=== PATIENT | female | born 1995 | race Caucasian/White ===

== ENCOUNTER 2016-08-26 19:30 | Emergency (ER) | payer OTHER ==
[2016-08-26 20:15] VITALS: BP 133/91
--- NOTE | 2016-08-26 20:27 | UC ---
Respiratory Complaint HPI - HPI Summary HPI Summary: 21 y/o female presents to the clinic c/o of sore throat, productive cough and Rt ear pain for the pasr 3 days. Patient reports about a month ago she had similar symptoms and went to the [facility] office in [facility] and was Rx Amoxicillin for 10 days. She states her symptoms resolved, but now they have returned. Her cough is producing a white phlegm. Positive nasal congestion with mild headache. Denies SOB, fever, chest pain, N/V/D. - History of Current Complaint Stated Complaint: COUGH SORE THROAT EAR PAIN Time Seen by Provider: 08/26/16 20:06 Hx Obtained From: Patient Hx Last Menstrual Period: 08/23/16 ?: No Onset/Duration: Gradual Onset, Lasting Days, Still Present Timing: Constant Severity Initially: Moderate Severity Currently: Moderate Pain Intensity: 4 Pain Scale Used: 0-10 Numeric Character: Cough: Productive - white phlegm Aggravating Factors: Allergens Alleviating Factors: Nothing Associated Signs And Symptoms: Positive: Dyspnea, Nasal Congestion, Sinus Discomfort. Negative: Fever, Wheezing Related History: Seasonal Allergies - Risk Factors Pulmonary Embolism Risk Factors: Negative Cardiac Risk Factors: Negative Pseudomonas Risk Factors: Negative Tuberculosis Risk Factors: Negative - Allergies/Home Medications Allergies/Adverse Reactions: Allergies Allergy/AdvReac Type Severity Reaction Status Date / Time No Known Allergies Allergy Verified 08/26/16 20:15 PMH/Surg Hx/FS Hx/Imm Hx Previously Healthy: Yes Psychological History: Anxiety - Surgical History Surgical History: None - Family History Known Family History: Positive: Hypertension, Diabetes Negative: Cardiac Disease - Social History Occupation: Student Alcohol Use: Weekly Substance Use Type: Marijuana Substance Use Comment - Amount & Last Used: occasionally Smoking Status (MU): Never Smoked Tobacco Review of Systems Constitutional: Negative Skin: Negative Eyes: Negative ENT: Sore Throat, Ear Ache, Nasal Discharge Respiratory: Cough - productive Cardiovascular: Negative Gastrointestinal: Negative Genitourinary: Negative Motor: Negative Neurovascular: Negative Musculoskeletal: Negative Neurological: Negative Psychological: Negative All Other Systems Reviewed And Are Negative: Yes Physical Exam Triage Information Reviewed: Yes Appearance: Well-Appearing, No Pain Distress, Well-Nourished, Obese Vital Signs: Initial Vital Signs Temp 98.9 F 08/26/16 20:09 Pulse 94 08/26/16 20:09 Resp 18 08/26/16 20:09 BP 133/91 08/26/16 20:09 Pulse Ox 98 08/26/16 20:09 Vital Signs Reviewed: Yes Eyes: Positive: Conjunctiva Clear - watery discharge ENT: Positive: Normal ENT inspection, Hearing grossly normal, Pharyngeal erythema, Nasal congestion, Nasal drainage - clear, TMs normal, Tonsillar swelling, Tonsillar exudate Neck exam: Normal Neck: Positive: Supple, Nontender, Tenderness @ - Left anterior cervical node, Enlarged Nodes @ Respiratory: Positive: Chest non-tender, Lungs clear, Normal breath sounds, No respiratory distress Cardiovascular Exam: Normal Cardiovascular: Positive: No Murmur, Pulses Normal Abdominal Exam: Normal Abdomen Description: Positive: Nontender, No Organomegaly, Soft Bowel Sounds: Positive: Present Musculoskeletal Exam: Normal Neurological Exam: Normal Psychological Exam: Normal Skin Exam: Normal UC Diagnostic Evaluation - Laboratory O2 Sat by Pulse Oximetry: 98 Respiratory Course/Dx - Course Course Of Treatment: pharyngitis:Pharyngeal erythema, Nasal congestion, Nasal drainage - clear, TMs normal, Tonsillar swelling, Tonsillar exudate. Rapid strep ordered, result: negative. Most likely viral pharyngitis with exacerbation of her sesonal allergies. Patient Rx Ibuprofen, cetirizine and Flonase to aleviate symptoms. Advised to increase fluid intake and rest. Pt understood and agreed - Differential Dx/Diagnosis Differential Diagnosis/HQI/PQRI: Bronchitis, Laryngitis, Sinusitis, Other - allergic rhinitis, pharyngitis Provider Diagnoses: viral pharyngitis, allergic rhinitis Discharge - Discharge Plan Condition: Stable Disposition: HOME Prescriptions: Cetirizine* [ZyrTEC 10 MG TAB*] 10 mg PO DAILY #30 tab Fluticasone NASAL SPRAY 50MCG* [Flonase NASAL SPRAY 50MCG*] 2 spray BOTH NARES DAILY #1 btl Ibuprofen TAB* [Motrin TAB* 600 MG] 600 mg PO Q6H PRN #20 tab PRN Reason: Pain Patient Education Materials: Pharyngitis (ED), Allergic Rhinitis (ED) Referrals: [facility] [Outside] Additional Instructions: Please increase fluid intake and rest. Take medications as directed to alleviate symptoms. Return to the urgent care or your Primary care if symptoms do not improve.
== END 2016-08-26 21:10 | disposition home or self-care (01) ==
LOC: UCEAST 19:30
DX: J02.8 Acute pharyngitis due to other specified organisms (principal); J30.9 Allergic rhinitis, unspecified; F41.9 Anxiety disorder, unspecified; F12.90 Cannabis use, unspecified, uncomplicated
CPT/HCPCS: 87651; 99212; G0463

== ENCOUNTER 2017-05-30 14:09 | Emergency (ER) | payer OTHER ==
[2017-05-30 14:18] VITALS: BP 136/71
--- NOTE | 2017-05-30 14:41 | UC ---
Throat Pain/Nasal Oscar HPI - HPI Summary HPI Summary: St, congestion, ear pain, productive cough starting 3-4 days ago. Unsure if she had any fevers. Worried about the flu. - History of Current Complaint Chief Complaint: UCRespiratory Stated Complaint: FLU SYMPTOMS Time Seen by Provider: 05/30/17 14:20 Hx Obtained From: Patient Hx Last Menstrual Period: one week ago ?: No Onset/Duration: Gradual Onset, Lasting Days Severity: Mild Pain Intensity: 7 Cough: Productive Associated Signs & Symptoms: Positive: Nasal Discharge. Negative: Wheezing, Hoarseness, Sinus Discomfort, Fever, Vomiting, Rash - Allergies/Home Medications Allergies/Adverse Reactions: Allergies Allergy/AdvReac Type Severity Reaction Status Date / Time No Known Allergies Allergy Verified 05/30/17 14:18 PMH/Surg Hx/FS Hx/Imm Hx Psychological History: Anxiety - Surgical History Surgical History: None - Family History Known Family History: Positive: Hypertension, Diabetes Negative: Cardiac Disease - Social History Alcohol Use: Occasionally Substance Use Type: Marijuana Substance Use Comment - Amount & Last Used: occasionally Smoking Status (MU): Never Smoked Tobacco Review of Systems Constitutional: Fatigue Skin: Negative Eyes: Negative ENT: Sore Throat, Nasal Discharge Respiratory: Cough Cardiovascular: Negative Gastrointestinal: Negative Genitourinary: Negative Motor: Negative Neurovascular: Negative Musculoskeletal: Negative Neurological: Negative Psychological: Negative Is Patient Immunocompromised?: No All Other Systems Reviewed And Are Negative: Yes Physical Exam Triage Information Reviewed: Yes Appearance: Well-Appearing, No Pain Distress, Obese Vital Signs: Initial Vital Signs Temp 98.0 F 05/30/17 14:16 Pulse 104 05/30/17 14:16 Resp 12 05/30/17 14:16 BP 136/71 05/30/17 14:16 Pulse Ox 100 05/30/17 14:16 Vital Signs Reviewed: Yes Eye Exam: Normal Eyes: Positive: Conjunctiva Clear ENT: Positive: Hearing grossly normal, Pharynx normal, Nasal congestion, TMs normal - visible air-fluid levels behind TMs Neck exam: Normal Respiratory Exam: Other - occ productive cough Respiratory: Positive: Chest non-tender, Lungs clear, Normal breath sounds, No respiratory distress, No accessory muscle use Cardiovascular: Positive: No Murmur, Tachycardia Musculoskeletal Exam: Normal Musculoskeletal: Positive: Strength Intact Neurological Exam: Normal Neurological: Positive: Alert Psychological Exam: Normal Skin Exam: Normal Throat Pain/Nasal Course/Dx - Course Course Of Treatment: Discussed the fact that tamiflu is not effective/indicated this far out in illness, and her basically normal vital signs and benign history mean that she is low risk for serious complications from the flu. Provided reassurance and education, pt expresses understanding. - Differential Dx/Diagnosis Provider Diagnoses: Viral upper respiratory infection Discharge - Discharge Plan Condition: Stable Disposition: HOME Patient Education Materials: Upper Respiratory Infection (ED) Referrals: No Primary Care Phys,NOPCP [Primary Care Provider] - Additional Instructions: As we discussed, it is very possible that you may be fighting off the flu, but in most healthy people with healthy lungs this is not that different from a bad cold virus. I expect your symptoms to gradually improve through the next week or so. You may cough for a total of 3-4 weeks. Come back right away if you develop fever over 100.5F, trouble breathing, new pain, or worsening symptoms.
== END 2017-05-30 14:43 | disposition home or self-care (01) ==
LOC: UCEAST 14:09
DX: J06.9 Acute upper respiratory infection, unspecified (principal); F41.9 Anxiety disorder, unspecified
CPT/HCPCS: 99211; G0463

== ENCOUNTER 2017-06-01 07:54 | Emergency (ER) | payer OTHER ==
[2017-06-01 08:08] VITALS: BP 127/80
--- NOTE | 2017-06-01 08:23 | UC ---
Throat Pain/Nasal Oscar HPI - HPI Summary HPI Summary: Patient presents with about 6 days of URI symptoms. She has cough, nasal congestion, sore throat, pain with swallowing and headache. Her ears feel full. She denies any fever, nausea or vomiting. Was seen here 2 days ago and diagnosed with a viral URI. She is concerned that she does not feel any better today. - History of Current Complaint Chief Complaint: UCGeneralIllness Stated Complaint: SORE THROAT EAR PAIN Time Seen by Provider: 06/01/17 08:13 Hx Obtained From: Patient Hx Last Menstrual Period: 05/25/17 Onset/Duration: Gradual Onset, Lasting Days, Still Present Severity: Moderate Pain Intensity: 8 Pain Scale Used: 0-10 Numeric Cough: Productive Associated Signs & Symptoms: Positive: Nasal Discharge - Allergies/Home Medications Allergies/Adverse Reactions: Allergies Allergy/AdvReac Type Severity Reaction Status Date / Time No Known Allergies Allergy Verified 06/01/17 07:57 Home Medications: Home Medications Acetaminophen 650 mg PO Q6HR 06/01/17 [History Confirmed 06/01/17] PMH/Surg Hx/FS Hx/Imm Hx Psychological History: Anxiety - Surgical History Surgical History: None - Family History Known Family History: Positive: Hypertension, Diabetes Negative: Cardiac Disease - Social History Alcohol Use: Occasionally Substance Use Type: Marijuana Substance Use Comment - Amount & Last Used: occasionally Smoking Status (MU): Never Smoked Tobacco Review of Systems Constitutional: Fatigue ENT: Sore Throat, Ear Ache, Nasal Discharge Respiratory: Cough Cardiovascular: Negative Gastrointestinal: Negative Neurological: Headache All Other Systems Reviewed And Are Negative: Yes Physical Exam Triage Information Reviewed: Yes Appearance: Well-Appearing, No Pain Distress, Well-Nourished Vital Signs: Initial Vital Signs Temp 98.4 F 06/01/17 08:03 Pulse 96 06/01/17 08:03 Resp 16 06/01/17 08:03 BP 127/80 06/01/17 08:03 Pulse Ox 99 06/01/17 08:03 Vital Signs Reviewed: Yes Eyes: Positive: Conjunctiva Clear ENT: Positive: Hearing grossly normal, Pharyngeal erythema, TMs normal, Uvula midline. Negative: Tonsillar swelling, Tonsillar exudate, Hoarse voice Neck: Positive: Supple, Nontender, No Lymphadenopathy Respiratory Exam: Normal Cardiovascular Exam: Normal Abdomen Description: Positive: Soft Musculoskeletal: Positive: No Edema Neurological: Positive: Alert Psychological: Positive: Age Appropriate Behavior Skin: Negative: rashes Diagnostics - Laboratory Diagnostic Studies Completed/Ordered: STREP NEG Throat Pain/Nasal Course/Dx - Course Assessment/Plan: Counseled patient extensively on probable viral etiology of her condition. Advised that antibiotics are unlikely to be helpful and that her symptoms likely just need more time to resolve. Symptoms may last for some weeks. Patient expresses understanding and is okay for d/c. - Differential Dx/Diagnosis Provider Diagnoses: ACUTE URI - LIKELY VIRAL Discharge - Discharge Plan Condition: Stable Disposition: HOME Patient Education Materials: Upper Respiratory Infection (ED) Referrals: No Primary Care Phys,NOPCP [Primary Care Provider] - Additional Instructions: STREP TEST NEGATIVE. YOUR SYMPTOMS ARE LIKELY VIRALLY MEDIATED AND SHOULD RESOLVE ON THEIR OWN WITH TIME. REST, HYDRATE, OTC MEDS NEEDED. SEEK FOLLOW- UP IF YOU ARE NOT IMPROVING OVER THE NEXT 1-2 WEEKS. TRY OTC AFRIN FOR NASAL CONGESTION. OKAY TO USE 2-3 SPRAYS IN EACH NOSTRIL UP TO 2 TIMES DAILY. DO NOT USE FOR MORE THAN 3-4 CONSECUTIVE DAYS TO PREVENT DEVELOPING REBOUND CONGESTION. IBUPROFEN MAX DOSE: 600MG (3 TABS) EVERY 6 HRS OR 800MG (4 TABS) EVERY 8 HRS
== END 2017-06-01 08:55 | disposition home or self-care (01) ==
LOC: UCEAST 07:54
DX: J06.9 Acute upper respiratory infection, unspecified (principal); F41.9 Anxiety disorder, unspecified
CPT/HCPCS: 87651; 99211; G0463

== ENCOUNTER 2018-02-01 17:07 | Emergency (ER) | payer OTHER ==
[2018-02-01 18:09] VITALS: BP 136/86
--- NOTE | 2018-02-01 18:46 | UC ---
Respiratory Complaint HPI - HPI Summary HPI Summary: 22 y/o female presents to the urgent care c/o productive cough, chest congestion , PAREDES and b/L neck soreness, fever, chills since 01/28/2018. Pt reports pain is 5/ 10 body aches associated w/ PAREDES today. She has decrease appetite. She has been drinking fluid and is urinating well. She couldn't sleep well last night. She has taken aspirin and Dayquill PO to alleviate symptoms. Pt states subjective fever at home. Pt deneis SOB, dizziness, rash, neck stiffness, wheezing, chest pain, abdominal pain, N/v/D. - History of Current Complaint Chief Complaint: UCGeneralIllness Stated Complaint: chest congestion Time Seen by Provider: 02/01/18 18:44 Hx Obtained From: Patient Hx Last Menstrual Period: 01/18/18 ?: No - declines test Onset/Duration: Gradual Onset, Lasting Days - 5 days, Still Present, Worse Since - yesterday Timing: Constant Severity Initially: Mild Severity Currently: Moderate Pain Intensity: 5 - body aches Pain Scale Used: 0-10 Numeric Character: Cough: Productive, Sputum Description: - yellowish Aggravating Factors: Recumbent Position Alleviating Factors: OTC Meds Associated Signs And Symptoms: Positive: Fever, Chills, URI, Nasal Congestion - Risk Factors Pulmonary Embolism Risk Factors: Negative - Allergies/Home Medications Allergies/Adverse Reactions: Allergies Allergy/AdvReac Type Severity Reaction Status Date / Time No Known Allergies Allergy Verified 02/01/18 18:02 Home Medications: Home Medications Escitalopram Oxalate [Lexapro 10 mg] 5 mg PO DAILY 02/01/18 [History Confirmed 02/01/18] PMH/Surg Hx/FS Hx/Imm Hx Previously Healthy: Yes - Pt denies PMHX - Surgical History Surgical History: None - Family History Known Family History: Positive: Hypertension, Diabetes Negative: Cardiac Disease - Social History Occupation: Employed Full-time Lives: With Family Alcohol Use: Occasionally Substance Use Type: Marijuana Substance Use Comment - Amount & Last Used: occasionally Smoking Status (MU): Never Smoked Tobacco - Immunization History Vaccination Up to Date: Yes Review of Systems All Other Systems Reviewed And Are Negative: Yes Constitutional: Positive: Chills, Fatigue, Other - body aches Skin: Positive: Negative Eyes: Positive: Negative ENT: Positive: Nasal Discharge - yellowish, Sinus Congestion Respiratory: Positive: Cough - productive w/ yellowish phlegm Cardiovascular: Positive: Negative Gastrointestinal: Positive: Negative Genitourinary: Positive: Negative Motor: Positive: Negative Neurovascular: Positive: Negative Musculoskeletal: Positive: Negative Neurological: Positive: Headache Psychological: Positive: Negative Is Patient Immunocompromised?: No Physical Exam - Summary Physical Exam Summary: Vital Signs Reviewed: Yes General: well developed, well nourished obese female sitting in the examining table w/o any apparent distress Eyes: Positive: Conjunctiva Clear - PERRLA, EOMI, fundi grossly normal ENT: Positive: Normal ENT inspection, Hearing grossly normal, Pharynx normal, Nasal congestion - edematous and erythematous nasal mucosa, Nasal drainage - yellowish drainage, TMs normal. Negative: Tonsillar swelling, Tonsillar exudate NECK: Supple, trachea is midline, Positive anterior cervical lymphadenopathy, no JVD, no carotid bruit, no c-spine tenderness, neck with full ROM. No meningeal signs, no Kernig's or brudzinskis signs. Respiratory: no orthopnea or dyspnea. Able to speak in full sentences, no retractions or accessory muscle use, no tripod position, stridor, or head bobbing. Positive breath sounds bilaterally. B/l lungs w/ scattered rhonchi and decrease breath sound in the RT lung,no wheezing, no crackles or rales. Cardiovascular: Positive: RRR, No Murmur, Pulses Normal, Brisk Capillary Refill Abdomen Description: Positive: Nontender, No Organomegaly, Soft. Negative: CVA Tenderness (R), CVA Tenderness (L) Bowel Sounds: Positive: Present Musculoskeletal Exam: Normal Musculoskeletal: Positive: Strength Intact, ROM Intact, No Edema Neurological Exam: Normal Psychological Exam: Normal Skin Exam: Normal Triage Information Reviewed: Yes Vital Signs: Initial Vital Signs Temp 98.5 F 02/01/18 18:04 Pulse 112 02/01/18 18:04 Resp 16 02/01/18 18:04 BP 136/86 02/01/18 18:04 Pulse Ox 97 02/01/18 18:04 Diagnostic Evaluation - Laboratory O2 Sat by Pulse Oximetry: 97 Respiratory Course/Dx - Course Course Of Treatment: 22 y/o female presents to the urgent care c/o productive cough, chest congestion, PAREDES and b/L neck soreness, fever, chills since 2017. Pt reports pain is 5/10 body aches associated w/ PAREDES today. She has decrease appetite. She has been drinking fluid and is urinating well. She couldn 't sleep well last night. She has taken aspirin and Dayquill PO to alleviate symptoms. Pt states subjective fever at home. Pt deneis SOB, dizziness, rash, neck stiffness, wheezing, chest pain, abdominal pain, N/v/D.Hx obtained. Pt w/ B /L lungs w/ scattered rhonchi and decrease breath sounds in the RT lung,no wheezing, no crackles or rales.O2SAt 97%. Pt is hemodynamically stable.Chest X- ray ordered to r/o pneumonia. Impression: RT middle lobe pneumonia. Rapid Influenza A&B ordered, result: negative. I discussed all the findings and test results with the patient. Pt Rx Omnicef PO, albuterol inhaler, Tessalon tabs, and Ibuprofen PO t alleviate symptoms. She was instructed to go to the emergency room immediately if her symptoms worsens. Plan of care was discussed with the patient and mother, they understand and agree. All questions were answered at patient satisfaction. There were no further complaints or concerns. Pt left the clinic hemodynamically stable, A&OX3 - Differential Dx/Diagnosis Differential Diagnosis/HQI/PQRI: Asthma, Bronchitis, Influenza, Laryngitis, Lower Resp Infection, Sinusitis, Other - pneumonai Provider Diagnoses: 1- community acquired pneumonia. 2-cough Discharge - Sign-Out/Discharge Documenting (check all that apply): Patient Departure - d/c home All imaging exams completed and their final reports reviewed: No - Discharge Plan Condition: Stable Disposition: HOME Prescriptions: Albuterol HFA INHALER* [Ventolin HFA Inhaler*] 1 - 2 puff INH Q6H PRN #1 mdi PRN Reason: Cough Benzonatate CAP* [Tessalon 100 MG CAP*] 100 mg PO TID PRN #21 cap PRN Reason: Cough Cefdinir [Cefdinir 300 MG CAP] 300 mg PO BID #14 capsule Ibuprofen TAB* [Motrin TAB* 800 MG] 800 mg PO Q6H PRN #30 tab PRN Reason: Fever Patient Education Materials: Community Acquired Pneumonia (ED) Referrals: [facility] [[facility]] - 3 Days Additional Instructions: 1-Please take full course of antibiotic to avoid resistance. 2- Take Ibuprofen PO q6-8hrs after meals to alleviate fever and pain. 2-Take Tessalon tabs as directed and use the albuterol inhaler to alleviate cough. Increase fluid intake, rest and eat well. Avoid strenuous exercise 3- If symptoms do not improve or worsen or your develop SOB with fever and severe cough please go immediately to the ER further evaluation and treatment. 4-See your PCP in 3 days to check your symptoms are improving - Billing Disposition and Condition Condition: STABLE Disposition: Home - Attestation Statements Provider Attestation: Per institutional requirements, I have reviewed the chart, however, I was not consulted specifically or made aware of this patient by the midlevel provider. I did not personally evaluate, interact with , or disposition this patient.
--- NOTE | 2018-02-02 08:44 | UC ---
- Progress Note Progress Note: Patient Name: SERENE ORR Medical Record#: [id number] Ordering Physician: Sara VEGA Acct.#: [id number] : 1995 Age: 22 Sex: F Location: [facility] Exam Date: 02/01/181857 ADM Status: DEP ER Order Information: CHEST PA & LAT 2 VWS Accession Number: [id number] CPT: 44875 INDICATION: Productive cough and fever. COMPARISON: Comparison is made with prior study from March 05, 2015. TECHNIQUE: Dual-energy PA and lateral views of the chest were obtained. FINDINGS: The heart is within normal limits in size. Mediastinal and hilar contours appear within normal limits. There is a patchy infiltrate present in the right middle lobe. The left lung appears clear. No pleural effusion is seen. IMPRESSION: RIGHT MIDDLE LOBE INFILTRATE MOST CONSISTENT WITH PNEUMONIA. R0 Preliminary Imaging Read NO DISCREPANCY <Electronically signed by Monty Gomez MD in [place]> 02/02/18741 Dictated By: Monty Gomez MD Dictated Date/Time: 02/02/18741 Transcribed Date/Time: 02/02/18740 Copy to: CC:Isacc Weber MD; Sara VEGA; No Primary Care Phys,NOPCP Imaging - [facility] Imaging - [facility] [address] [address] ph ([phone]) ph ([phone]) ph ([phone]) This report is only to be considered final once signed by the Provider(s) as displayed in the "<Electronically Signed by >" field (s). Absence of a signature indicates the report is in a draft status and still needs to be finalized. In the event this document was created by someone other than the signing Provider, the individual initiating the document will be listed in the "Entered by:" or "Dictated by:" bernardo. 1 of 1 Discharge - Sign-Out/Discharge Documenting (check all that apply): Post-Discharge Follow Up All imaging exams completed and their final reports reviewed: Yes - Discharge Plan Condition: Stable Disposition: HOME Prescriptions: Albuterol HFA INHALER* [Ventolin HFA Inhaler*] 1 - 2 puff INH Q6H PRN #1 mdi PRN Reason: Cough Benzonatate CAP* [Tessalon 100 MG CAP*] 100 mg PO TID PRN #21 cap PRN Reason: Cough Cefdinir [Cefdinir 300 MG CAP] 300 mg PO BID #14 capsule Ibuprofen TAB* [Motrin TAB* 800 MG] 800 mg PO Q6H PRN #30 tab PRN Reason: Fever Patient Education Materials: Community Acquired Pneumonia (ED) Referrals: [facility] [place] [facility] [Outside] - 3 Days Additional Instructions: 1-Please take full course of antibiotic to avoid resistance. 2- Take Ibuprofen PO q6-8hrs after meals to alleviate fever and pain. 2-Take Tessalon tabs as directed and use the albuterol inhaler to alleviate cough. Increase fluid intake, rest and eat well. Avoid strenuous exercise 3- If symptoms do not improve or worsen or your develop SOB with fever and severe cough please go immediately to the ER further evaluation and treatment. 4-See your PCP in 3 days to check your symptoms are improving - Billing Disposition and Condition Condition: STABLE Disposition: Home
== END 2018-02-01 19:55 | disposition home or self-care (01) ==
LOC: UCEAST 17:07
DX: J18.9 Pneumonia, unspecified organism (principal)
CPT/HCPCS: 71046; 99212; G0463

== ENCOUNTER 2018-02-24 13:17 | Emergency (ER) | payer OTHER ==
[2018-02-24 13:33] VITALS: BP 128/93
--- NOTE | 2018-02-24 13:49 | UC ---
Throat Pain/Nasal Oscar HPI - HPI Summary HPI Summary: Pt presents with recent dx and treatment for PNA. Pt states was feeling better. over last 2 days, return of head congestion, pnd, cough. No production No fever , chills. No OTC meds taken. Pt sttes she traveled to and from [place]. No cp, sob. No n/v/d. No soto, vision changes Pt was Rx and MDI with first dx - did not take it, no OtC meds pt's medications reviewed this visit - History of Current Complaint Chief Complaint: UCRespiratory Stated Complaint: COUGH RESP ISSUE Time Seen by Provider: 02/24/18 13:40 Hx Obtained From: Patient, Medical Records Hx Last Menstrual Period: 01/18/18 Pain Intensity: 5 - Allergies/Home Medications Allergies/Adverse Reactions: Allergies Allergy/AdvReac Type Severity Reaction Status Date / Time No Known Allergies Allergy Verified 02/24/18 13:32 PMH/Surg Hx/FS Hx/Imm Hx Previously Healthy: Yes - Surgical History Surgical History: None - Family History Known Family History: Positive: Hypertension, Diabetes Negative: Cardiac Disease - Social History Lives: With Family Alcohol Use: Weekly Substance Use Type: Marijuana Substance Use Comment - Amount & Last Used: weekly Smoking Status (MU): Never Smoked Tobacco - Immunization History Vaccination Up to Date: Yes Review of Systems All Other Systems Reviewed And Are Negative: Yes Constitutional: Positive: Fatigue ENT: Positive: Nasal Discharge, Sinus Congestion Respiratory: Positive: Cough Physical Exam - Summary Physical Exam Summary: Vital Signs Reviewed: Yes A+Ox3, no distress Eyes: Conjunctiva Clear, LANA. EOM intact and full ENT: Hearing grossly normal TM x 2 clear, turbinates inflammed annd boggy, + PND, mmoist, uvula midline, no exudate, no erythema Neck: Positive: Supple Respiratory: Positive: No respiratory distress, No accessory muscle use + BS throughout scattered wheeze, no rhonci. speaking full sentences Cardiovascular: RRR nl s1, s2 no m/r CBT <2 sec abd soft + BS nt/nd no guarding, no distension Musculoskeletal Exam: EDWARDS x 4 without difficulty Strength Intact, ROM Intact Neurological: Positive: Alert, + sensation throughout Psychological: Positive: Normal Response To Family Skin: Positive: no rash, no ecchymosis Triage Information Reviewed: Yes Vital Signs: Initial Vital Signs Temp 97.8 F 02/24/18 13:29 Pulse 77 02/24/18 13:29 Resp 18 02/24/18 13:29 BP 128/93 02/24/18 13:29 Pulse Ox 100 02/24/18 13:29 Diagnostics - Radiology No standard instances Radiology Interpretation Completed By: Radiologist - Patient Name: SERENE ORR Medical Record#: [id number] Ordering Physician: Sabrina Brooks MD Acct.#: [id number] : 1995 Age: 22 Sex: F Location: [facility] Exam Date: 02/24/18 1355 ADM Status: REG ER Order Information: CHEST PA & LAT 2 VWS Accession Number: [id number] CPT: 68846 HISTORY: renewed cough, recent pna on XR COMPARISONS: February 01, 2018 VIEWS: 4: Frontal dual-energy and lateral views of the chest. FINDINGS: CARDIOMEDIASTINAL SILHOUETTE: The cardiomediastinal silhouette is normal. ROSA: The rosa are normal. PLEURA: The costophrenic angles are sharp. No pleural abnormalities are noted. LUNG PARENCHYMA: The lungs are clear. There has been interval resolution of airspace disease of the right middle lobe noted on the previous examination. ABDOMEN: The upper abdomen is clear. There is no subphrenic gas. BONES AND SOFT TISSUES: No bone or soft tissue abnormalities are noted. OTHER: None. IMPRESSION: NO ACTIVE CARDIOPULMONARY DISEASE. <Electronically signed by Jose De Jesus Estevez MD in OV> 141 Dictated By: Jose De Jesus Estevez MD Dictated Date/Time: 02/24/18 1418 Transcribed Date/Time: 02/24/18 141 Copy to: CC:Sabrina Brooks MD; No Primary Care Phys,NOPCP Imaging - [facility] Imaging - [facility] Care Imaging [facility] [address] [place] [address] ph ) ph ([phone]) ph ([phone]) This report is only to be considered final once signed by the Provider(s) as displayed in the "< Electronically Signed by >" field (s). Absence of a signature indicates the report is in a draft status and still needs to be finalized. In the event this document was created by someone other than the signing Provider, the individual initiating the document will be listed in the "Entered by:" or "Dictated by:" bernardo. 1 of 1 Re-Evaluation - Re-Evaluation First Eval Change: Improved - wheezing resolved states feel better cxr resolved treat viral support humidify decongestant mdi with spacer pred return precautions Throat Pain/Nasal Course/Dx - Course Course Of Treatment: Pt with cough, pnd, congestion x 48 hours s/p travel. Pt with recent tx for pna. Pt without pain, sob. on exam, vss. nasal congestion , PND and scattered wheeze. will give duoneb, cxr and reassess. 03/03 RLL PNA - Differential Dx/Diagnosis Provider Diagnosis: Acute bronchitis, URI (upper respiratory infection) Discharge - Sign-Out/Discharge Documenting (check all that apply): Patient Departure All imaging exams completed and their final reports reviewed: Yes - Discharge Plan Condition: Stable Disposition: HOME Prescriptions: predniSONE TAB* [Deltasone TAB*] 50 mg PO DAILY #5 tab Patient Education Materials: Upper Respiratory Infection (ED), Acute Bronchitis (ED) Referrals: [facility] [place] PHYSICIAN REFERRAL [Outside] No Primary Care Phys,NOPCP [Primary Care Provider] - Additional Instructions: -Take antibiotics exactly as prescribed until gone -Use your albuterol puffer - 2 puffs every 4 hours for the next 2 days - then as needed - Take prednisone daily as prescribed until gone -Stay well hydrated - avoid excess caffeine and all alcohol - eat regular, healthy meals - - humidify the air in the room where you sleep - boil water, run a hot steam shower, vaporizer, cups of water by heat register - okay to take over the counter decongestant and cough medication -- These infections are spread by secretions - do NOT share eating or drinking utensils - clean items you share with other people such as cell phones, computer mouse, TV remote, computer tablets,etc.. Once you start to feel better , change your toothbrush and your pillowcase. -Contact your doctor to arrange a follow-up appointment this week. Call your doctor, return here or go to the emergency department with any questions or concerns - Billing Disposition and Condition Condition: STABLE Disposition: Home
[2018-02-24] MEDS ORDERED: Albuterol/Ipratropium NEB.SOL* Albuterol 2.5 MG/Ipratropium 0.5 MG 3 ML INH ONE (13:55)
== END 2018-02-24 14:45 | disposition home or self-care (01) ==
LOC: UCEAST 13:17
DX: J20.9 Acute bronchitis, unspecified (principal); J06.9 Acute upper respiratory infection, unspecified
CPT/HCPCS: 71046; 99212; A9270-GY; G0463

== ENCOUNTER 2019-07-14 14:29 | Emergency (ER) | payer OTHER ==
--- NOTE | 2019-07-14 14:32 | UC ---
Dental HPI - HPI Summary HPI Summary: 24 yo female presents with dental pain. She tells me that she saw her dentist for a routine appointment about 2 months ago and was told her left lower wisdom tooth was breaking through the skin and that she may get infections there from time to time. This has not happened to her yet, but over the last 3 days has noticed pain and swelling to the area with some cheek swelling. Last night noticed left sided throat pain that hurts to swallow. She has been taking ibuprofen with good relief. Denies fever, chills, sinus symptoms, ear pain, cough, SOB, rash. She is UTD on immunizations - History of Current Complaint Stated Complaint: DENTAL PAIN Time Seen by Provider: 07/14/19 14:31 Hx Obtained From: Patient Hx Last Menstrual Period: 01/18/18 Onset/Duration: Gradual Onset Severity: Mild Pain Intensity: 4 Pain Scale Used: 0-10 Numeric - Allergies/Home Medications Allergies/Adverse Reactions: Allergies Allergy/AdvReac Type Severity Reaction Status Date / Time No Known Allergies Allergy Verified 07/14/19 14:46 Home Medications: Home Medications Amoxicillin PO (*) [Amoxicillin 875 MG (*)] 875 mg PO BID #14 tab 07/14/19 [Rx] Ibuprofen TAB* [Motrin TAB* 800 MG] 400 mg PO Q6H PRN 07/14/19 [History Confirmed 07/14/19] Lisdexamfetamine Dimesylate [Vyvanse] 20 mg PO DAILY PRN 07/14/19 [History Confirmed 07/14/19] PMH/Surg Hx/FS Hx/Imm Hx - Additional Past Medical History Additional PMH: ADHD Respiratory History: Asthma Psychological History: Anxiety, Depression - Surgical History Surgical History: None - Family History Known Family History: Positive: Hypertension, Diabetes Negative: Cardiac Disease - Social History Lives: With Family Alcohol Use: Weekly Substance Use Type: Marijuana Substance Use Comment - Amount & Last Used: weekly Smoking Status (MU): Never Smoked Tobacco - Immunization History Vaccination Up to Date: Yes Review of Systems All Other Systems Reviewed And Are Negative: No Constitutional: Positive: Negative Skin: Positive: Negative Eyes: Positive: Negative ENT: Positive: Dental Pain Respiratory: Positive: Negative Cardiovascular: Positive: Negative Neurological/Mental Status: Positive: Negative Psychological: Positive: Negative Physical Exam - Summary Physical Exam Summary: GENERAL: NAD. WDWN. No pain distress. SKIN: No rashes, sores, lesions, or open wounds. HEENT: Head: AT/NC. NTTP left parotid. No noticeable external cheek edema. Eyes: EOM intact. Conjunctiva clear without inflammation or discharge. Ears: Hearing grossly normal. TMs intact, no bulging, erythema, or edema. Nose: Nasal mucosa pink and moist. NTTP maxillary and frontal sinus. Throat: Posterior oropharynx without exudates, erythema, or tonsillar enlargement. Uvula midline. NECK: Supple. Nontender. No lymphadenopathy. CHEST: CTAB. No r/r/w. No accessory muscle use. Breathing comfortably and in no distress. CV: RRR. Pulses intact. Cap refill <2seconds NEURO: Alert. PSYCH: Age appropriate behavior. Triage Information Reviewed: Yes Vital Signs: Vital Signs: Temp Pulse Resp BP Pulse Ox 98.5 F 102 16 127/77 97 07/14/19 14:53 07/14/19 14:53 07/14/19 14:53 07/14/19 14:53 07/14/19 14:53 Vital Signs Reviewed: Yes Dental: Positive: Percussion Tenderness @ - Tooth #17, Cellulitis @ - Tooth #17 , Other: - Mild left buccal edema overlying solomon's duct. NTTP. No drainage.. Negative: Gross Decay/Caries @, Dental Fracture @, Abscess @, Cervical Lymphadenopathy, Bleeding Dental Complaint Course/Dx - Course Course Of Treatment: POC strep negative. Suspect dental abscess/cellulitis. Low suspicion for parotitis as she has no tenderness to the parotid area or external edema. No erythema or drainage. Suspect buccal edema is due to dental infection/inflammation. - Differential Dx/Diagnosis Provider Diagnosis: Pain, dental Discharge ED - Sign-Out/Discharge Documenting (check all that apply): Patient Departure All imaging exams completed and their final reports reviewed: No Studies - Discharge Plan Condition: Stable Disposition: HOME Prescriptions: Amoxicillin PO (*) [Amoxicillin 875 MG (*)] 875 mg PO BID #14 tab Patient Education Materials: Dental Abscess (ED), Toothache (ED) Referrals: No Primary Care Phys,NOPCP [Primary Care Provider] - Damian Vernon MD [Doctor of Dental Medicine] - As Soon As Possible Additional Instructions: I recommend scheduling an appointment with an oral surgeon (below) to see about getting your wisdom teeth removed - Billing Disposition and Condition Condition: STABLE Disposition: Home
--- OUTSIDE RECORDS SUMMARY | 2019-07-14 14:36 | XMS REPORT ---
:1995 Author Organization [facility] Care Team Providers Name Role Phone ELIJAH KUMAR Primary Care Physician Unavailable Allergies, Adverse Reactions, Alerts Allergy Code CodeSystem Reaction Severity Criticality Status Start Substance Date Moderate Medications Medication Medication Medication Start Stop Route Dose Status Fill Code CodeSystem Date Date Instructions Vyvanse 290005 RxNorm 2018-03- oral 20 mg active for 30 2-27 01-26 capsule day(s) Vyvanse 326122 RxNorm 2019- oral 20 mg 1 completed Take 1 9-20 10-20 capsule capsule by every mouth every morning morning for 30 day(s) escitalopram 927228 RxNorm 2017-03 2019- oral 10 mg completed for 30 oxalate 2-13 12-19 tablet day(s) bupropion HCl 124413 RxNorm 2019- oral 200 mg 1 completed 1 tablet 9-20 07-09 tablet once a day sustaine for 30 day(s) d-releas e 12 hr once a day bupropion HCl 197237 RxNorm 2019- oral 100 mg completed for 30 2-15 09-20 tablet day(s) sustaine d-releas e 12 hr Vyvanse 451081 RxNorm 2018-03 2019- oral 20 mg 1 completed Take 1 1-20 12-20 capsule capsule by every mouth every morning morning for 30 day(s) Problems Problem Name Code CodeSystem Alternate Alternate Start End Status Narrative Code CodeSystem Date Date 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-CT Active anxiety 4-05 disorder 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 depressive 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, current episode moderate Binge eating 19033362 SNOMED-CT Active disorder 9-20 Relevant diagnostic tests/laboratory data Narrative No Information Procedures Procedure Code CodeSystem Target Date of Status Service Device Device Device Name Site Procedure Delivery Code Name UID Location Psychotherap [id number] SNOMED-CT () 2018-08-08 complete Mental y, 45 04 d Health- minutes with [facility] patient [address], [id number] [phone] Psychotherap [id number] SNOMED-CT () 2018-09-19 complete Mental y, 45 04 d Health- minutes with [facility] patient [address], [id number] [phone] Psychotherap [id number] SNOMED-CT () 2018-10-05 complete Mental y, 45 04 d Health- minutes with [facility] patient [address], [phone] [phone] SNOMED-CT () 2018-11-08 complete Mental d Health- [facility] [address], [phone] [phone] Office or [id number] SNOMED-CT () 2018-12-15 complete Mental other 7 d Health- outpatient [facility] visit for [address], established [id number] patient, [phone] which requires at least 2 of these 3 lam components: An expanded problem focused history; An expanded problem focused examination; Medical decision making of low Psychotherap [id number] SNOMED-CT () 2018-12-26 complete Mental y, 45 04 d Health- minutes with [facility] patient [address], [phone] [phone] Psychotherap [id number] SNOMED-CT () 2019-01-23 complete Mental y, 45 04 d Health- minutes with [facility] patient [address], [phone] [phone] Office or [id number] SNOMED-CT () 2019-01-26 complete Mental other 6 d Health- outpatient [facility] visit for [address], established [phone] patient, [phone] which requires at least 2 of these 3 lam components: A problem focused history; A problem focused examination; Straightforw nelli medical decision making. Counselin Psychotherap [id number] SNOMED-CT () 2019-02-13 complete Mental y, 45 04 d Health- minutes with [facility] patient [address], [phone] Office or [id number] SNOMED-CT () 2019-04-26 complete Mental other 6 d Health- outpatient [facility] visit for [address], [facility], of an [place], established [phone] patient, [phone] which requires at least 2 of these 3 lam components: A problem focused history; A problem focused examination; Straightforw nelli medical decision making. Counselin SNOMED-CT () 2018-06-26 complete Mental d Health- [address], [phone] Encounters/Encounter Diagnoses Encounter Encounter Diagnosis Diagnosis Diagnosis Date of Service Name Code Code Name CodeSystem Diagnosis Delivery Location Non-Billable 16735 [id number] Recurrent SNOMED-CT 2019-05-04 Behavioral depressive Health disorder, Clinic , , current , episode moderate Vital Signs No Information Social History Element Description Description Start End Code CodeSystem AdditionalInfo Date Date SexAssignedAtBirth Female 1994-03 F AdministrativeGender - Hospital Discharge Instructions Reason For Referral Medical Equipment FDA Assessments
[2019-07-14 17:00] VITALS: BP 127/77
== END 2019-07-14 15:23 | disposition home or self-care (01) ==
LOC: UCEAST 14:29
DX: K08.89 Other specified disorders of teeth and supporting structures (principal); F90.9 Attention-deficit hyperactivity disorder, unspecified type; F41.9 Anxiety disorder, unspecified; Z79.899 Other long term (current) drug therapy
CPT/HCPCS: 87651; 99212; G0463